=== PATIENT | female | born 1955 | race Caucasian/White ===

== ENCOUNTER → 2016-06-25 | Day surgery (SDC) | payer BC ==
[~2016-06-25] MED LIST: ADVIL200 M2 PO; AMLODIPINE-OLM1 EAC1 PO; METFORMIN HCL500 M4 PO; MULTI-DAY VITA1 EACH PO; NEURONTIN100 MG PO; TYLENOL325 M1 PO; ZOCOR20 MG PO
--- NOTE | ~2016-06-25 | OR ---
Unit #: [id number] #: [id number] Patient: ALIZA PROCTOR [id number] [address] [place], [place] [address] [id number] MR#: [id number] NAME: ALIZA PROCTOR ROOM: Date of Procedure: 06/25/2016 Admission Date: 06/25/2016 Surgeon: Reggie Mackey M.D. : 1955 Attending Physician: Reggie Mackey M.D. Primary Care Physician: Yuliana Dewitt M.D. OPERATIVE REPORT PROCEDURE PERFORMED Colonoscopy to cecum. INDICATIONS FOR PROCEDURE Average risk for colorectal cancer. MEDICATIONS Monitored anesthesia. POSTOPERATIVE FINDINGS Good prep. Normal exam throughout all the way to the cecum. PLAN Repeat colonoscopy in 10 years. DESCRIPTION OF PROCEDURE The patient was explained of the procedure, risks, and benefits along with the risks and benefits of anesthesia. She was brought to the endoscopy room. Propofol anesthesia was given. Rectal exam was done, which was normal. Colonoscope was lubricated, passed up the rectum, advanced under direct vision all the way to the cecum. Cecum was identified by ileocecal valve and appendiceal orifice. I then started to pull the scope out carefully looking. No polyps, masses, or colitis was seen. I retroflexed in the rectum, small hemorrhoids seen. Scope was gently pulled out. She tolerated it well. Dictated by... Cynthia Valdivia/kylee TD: 06/25/2016 22:55 JOB #: [id number] Unit #: [id number] #: [id number] Patient: ALIZA PROCTOR OPERATIVE REPORT Page 1 of 1 X Reggie Mackey MD X PROCEDURE OPERATIVE NOTE
== END | disposition home or self-care (01) ==
LOC: COPS 09:32
DX: Z12.11 Encounter for screening for malignant neoplasm of colon (principal); I10 Essential (primary) hypertension; E11.9 Type 2 diabetes mellitus without complications; E78.5 Hyperlipidemia, unspecified; Z79.84 Long term (current) use of oral hypoglycemic drugs; Z79.899 Other long term (current) drug therapy; Z90.710 Acquired absence of both cervix and uterus; Z96.653 Presence of artificial knee joint, bilateral
CPT/HCPCS: 82947